=== PATIENT | male | born 1930 | race Caucasian/White ===

== ENCOUNTER 2017-11-18 16:53 | Emergency (ER) | payer MEDICARE ==
[2017-11-18] MEDS ORDERED: ISOVUE-370 76%-LOCM 1 ML ONE (17:35)
[2017-11-18 18:45] LABS: #Basophils 0.1 thou/uL (0.0-0.2); #Eosinphils 0.2 thou/uL (0.0-0.7); #Lymphocytes 2.9 thou/uL (1.20-3.40); #Monocytes 0.7 thou/uL (0.11-0.59); %Basophils 1.7 % (0.0-1.0); %Eosinophils 2.6 % (0.0-10.0); %Lymphocytes 41.5 % (21.0-51.0); %Monocytes 10.1 % (0.0-10.0); %Neutrophils 44.1 % (42.0-75.0); Hemoglobin 12.8 g/dL (14.0-18.0); Mean Corpuscular HGB CONC 33.1 g/dL (32.0-36.0); Mean Corpuscular Hemoglobin 32.7 pg (27.0-31.0); Mean Corpuscular Volume 98.9 fl (80.0-94.0); Platelet Count 219 thou/uL (130-400); RBC Distribution Width 12.1 % (11.5-14.5); Red Blood Cell (RBC) Count 3.93 mill/uL (4.70-6.10); White Blood Cell (WBC) Count 6.9 thou/uL (4.8-10.8)
[2017-11-18 18:52] LABS: Prothrombin Time 13.4 SEC (12.0-14.7)
[2017-11-18 19:02] LABS: ALT (SGPT) 20 U/L (8-55); AST (SGOT) 25 U/L (5-34); Albumin 4.2 g/dL (3.4-4.8); Alkaline Phosphatase 50 U/L (40-150); Anion Gap 16 mmol/L (10-20); BUN (Urea Nitrogen) 21 mg/dL (8.4-25.7); Bilirubin, Total 0.3 mg/dL (0.2-1.2); Calc. Creatinine Clearance 0 mL/min (70-130); Calcium 9.9 mg/dL (7.8-10.44); Carbon Dioxide 21 mmol/L (23-31); Chloride 104 mmol/L (98-107); Estimated GFR-MDRD 49; Globulin 3.1 g/dL (2.4-3.5); Glucose 114 mg/dL (83-110); Potassium 4.3 mmol/L (3.5-5.1); Protein, Total 7.3 g/dL (5.8-8.1); Sodium 137 mmol/L (136-145)
--- NOTE | 2017-11-18 19:06 | CT ---
CT BRAIN WITHOUT CONTRAST 11/18/17 HISTORY: Headache. There are changes of cortical atrophy and chronic small vessel ischemic disease. The ventricular size is appropriate and the basilar cisterns are patent. No evidence of acute infarct, hemorrhage, midlin e shift, or abnormal extra-axial fluid collections are seen. The bony calvarium is intact. The visual ized paranasal sinuses and mastoid air cells are well aerated. IMPRESSION: No CT evidence of acute intracranial process. POS: [facility]
[2017-11-18] MEDS ORDERED: Morphine 4 MG/ML VIAL ONE (19:08)
[2017-11-18] MEDS ORDERED: Ondansetron HCl/PF 4 MG/2 ML Vial ONE (19:08)
--- NOTE | 2017-11-18 20:02 | CT ---
CT CERVICAL SPINE WITH CORONAL AND SAGITTAL REFORMATIONS: 11/18/17 HISTORY: Fall. Neck pain. FINDINGS: There is a fracture involving the base of the odontoid process extending to the body and the lateral masses bilaterally. Mild associated displacement is seen. There are degenerative changes in the spine. IMPRESSION: Type III odontoid fracture. Neurosurgical consultation is recommended. Report was called over the telephone to Tamica Kuhn nurse practitioner in the Emergency Room at 6 :08 p.m. POS: [facility]
--- NOTE | 2017-11-18 23:21 | CT ---
CT ANGIO OF NECK WITH IV CONTRAST AND 3D POSTPROCESSIN11/18/17 HISTORY: Trauma, neck pain. FINDINGS: Vascular calcifications are present. There is moderate (50-69%) stenosis involving the proximal right ICA. The common carotid arteries, left internal carotid and both vertebral arteries demonstrate good flow. No intimal flap is seen to suggest dissection. Type III odontoid fracture noted on earlier CT scan of cervical spine is again seen. IMPRESSION: 1. No CT evidence of vascular injury. 2. Moderate (50-69%) stenosis involving the right proximal ICA. 3. Type III odontoid fracture. POS: [facility]
[2017-11-19 03:06] LABS: Bilirubin Negative (Negative); Blood, Urine Moderate (Negative); Clarity CLEAR (Clear); Glucose, Urine (Dipstick) Negative (Negative); Leukocyte Negative (Negative); Nitrite Negative (Negative); Protein, Urine (Dipstick) Negative (Neg-Trace); Specific Gravity, Urine 1.026 (1.002-1.036); Urobilinogen 0.2 mg/dL (0.2-1.0)
[2017-11-19 03:08] LABS: Bacteria/HPF None Seen HPF (None Seen); Hyaline Casts/LPF 0-3 HYALINE CAST LPF (0-3 Hyaline); RBC/HPF GREATER THAN 50-TNTC HPF (0-3); Squamous Epithelial None Seen HPF (0-3); WBC/HPF None Seen HPF (0-3)
--- NOTE | 2017-12-21 21:25 | EKG ---
Test Reason : SOB Blood Pressure : / mmHG Vent. Rate : 078 BPM Atrial Rate : 078 BPM P-R Int : 172 ms QRS Dur : 094 ms QT Int : 416 ms P-R-T Axes : 047 -49 053 degrees QTc Int : 474 ms Normal sinus rhythm Left axis deviation Abnormal ECG Confirmed by CAROLYN JULIO M.D. ([id number]), web content editor STACEY NICK ([id number]) on 12/21/2017 9:25:31 PM Referred By: Confirmed By:CAROLYN JULIO M.D.
== END 2017-11-19 05:00 ==
LOC: ERS 16:53
DX: S12.120A Other displaced dens fracture, initial encounter for closed fracture (principal); I65.21 Occlusion and stenosis of right carotid artery; S00.83XA Contusion of other part of head, initial encounter; I25.10 Atherosclerotic heart disease of native coronary artery without angina pectoris; E78.5 Hyperlipidemia, unspecified; I10 Essential (primary) hypertension; E03.9 Hypothyroidism, unspecified; G62.9 Polyneuropathy, unspecified; I25.2 Old myocardial infarction; Z85.46 Personal history of malignant neoplasm of prostate; Z79.02 Long term (current) use of antithrombotics/antiplatelets; Z79.82 Long term (current) use of aspirin; Z79.899 Other long term (current) drug therapy; W01.10XA Fall on same level from slipping, tripping and stumbling with subsequent striking against unspecified object, initial encounter; Y92.481 Parking lot as the place of occurrence of the external cause
CPT/HCPCS: 70450; 70498; 72125; 80053; 81003; 81015; 85025; 85610; 93005; 96374; 96375; J2270; J2405

== ENCOUNTER 2017-12-10 08:58 | Emergency (ER) | payer MEDICARE ==
[2017-12-10] MEDS ORDERED: HYDROcodone/Acetaminophen 5/325 mg Tablet ONE (09:33)
== END 2017-12-10 09:46 | disposition home or self-care (01) ==
LOC: ERS 08:58
DX: M54.2 Cervicalgia (principal); I25.10 Atherosclerotic heart disease of native coronary artery without angina pectoris; E78.5 Hyperlipidemia, unspecified; I10 Essential (primary) hypertension; E03.9 Hypothyroidism, unspecified; I25.2 Old myocardial infarction; Z87.81 Personal history of (healed) traumatic fracture; Z79.899 Other long term (current) drug therapy; Z79.82 Long term (current) use of aspirin
CPT/HCPCS: 99283

== ENCOUNTER 2017-12-12 10:45 | Outpatient (CLI) | payer MEDICARE ==
--- NOTE | 2017-12-12 13:09 | RAD ---
FOUR VIEWS LEFT ELBOW: Comparison: None. History: Pain from fall. FINDINGS: Four views of the left elbow shows no evidence of acute fracture or dislocation. No elbow effusion is seen. There is moderate posterior soft tissue swelling. IMPRESSION: Soft tissue swelling without underlying osseous abnormality. POS: [facility]
== END 2017-12-12 10:46 | disposition home or self-care (01) ==
LOC: TBSIIMAG 10:45
PROVIDERS: ATTEND Neurological Surgery
DX: S12.9XXA Fracture of neck, unspecified, initial encounter (principal); M25.521 Pain in right elbow; M79.89 Other specified soft tissue disorders

== ENCOUNTER 2017-12-13 14:40 | Observation (INO) | payer MEDICARE ==
[2017-12-13 15:08] LABS: #Basophils 0.1 thou/uL (0.0-0.2); #Eosinphils 0.1 thou/uL (0.0-0.7); #Lymphocytes 2.1 thou/uL (1.20-3.40); #Monocytes 0.5 thou/uL (0.11-0.59); #Neutrophils 3.9 thou/uL (1.40-6.50); %Basophils 0.8 % (0.0-1.0); %Eosinophils 1.6 % (0.0-10.0); %Lymphocytes 31.9 % (21.0-51.0); %Monocytes 7.1 % (0.0-10.0); %Neutrophils 58.6 % (42.0-75.0); Hemoglobin 14.1 g/dL (14.0-18.0); Mean Corpuscular HGB CONC 32.6 g/dL (32.0-36.0); Mean Corpuscular Hemoglobin 32.1 pg (27.0-31.0); Mean Corpuscular Volume 98.4 fl (80.0-94.0); Mean Platelet Volume 7.3 fL (7.4-10.4); Platelet Count 380 thou/uL (130-400); RBC Distribution Width 12.1 % (11.5-14.5); White Blood Cell (WBC) Count 6.6 thou/uL (4.8-10.8)
[2017-12-13 15:31] LABS: ALT (SGPT) 20 U/L (8-55); AST (SGOT) 27 U/L (5-34); Albumin 4.4 g/dL (3.4-4.8); Alkaline Phosphatase 76 U/L (40-150); Anion Gap 16 mmol/L (10-20); BUN (Urea Nitrogen) 21 mg/dL (8.4-25.7); Bilirubin, Total 0.5 mg/dL (0.2-1.2); Calc. Creatinine Clearance 0 mL/min (70-130); Carbon Dioxide 22 mmol/L (23-31); Chloride 102 mmol/L (98-107); Estimated GFR-MDRD 68; Globulin 3.8 g/dL (2.4-3.5); Glucose 91 mg/dL (83-110); Potassium 4.2 mmol/L (3.5-5.1); Protein, Total 8.2 g/dL (5.8-8.1); Sodium 136 mmol/L (136-145)
--- NOTE | 2017-12-13 15:53 | RAD ---
FOUR VIEWS OF THE CERVICAL SPINE: INDICATION: History of UTI, hallucinations, and weakness. History of C2 fracture. COMPARISON: Prior exam dated 11/18/17. FINDINGS: The odontoid fracture is not appreciably changed in position to the comparison CT. There is severe m ultilevel spondylosis of the cervical spine.. Prevertebral soft tissues appear within normal limits. There are chronic lung changes involving the lung apices. The lateral masses are symmetric. IMPRESSION: C2 odontoid fracture does not appear appreciably changed in position from the comparison CT dated 11/18. POS: [facility]
--- NOTE | 2017-12-13 15:53 | RAD ---
PA AND LATERAL OF THE CHEST: 12/13/17 INDICATION: History of UTI, hallucinations, weakness. FINDINGS: The lungs are hyperinflated with increased interstitial prominence likely related to underlying COPD change. 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 There is vascular calcification involving the aor tic arch. No pleural effusion, or pneumothorax noted. No acute osseous abnormality is evident. IMPRESSION: No definite acute cardiopulmonary abnormalities. POS: [facility]
[2017-12-13 17:38] LABS: CKMB 5.1 ng/mL (0-6.6)
[2017-12-13 18:56] LABS: Bilirubin Negative (Negative); Blood, Urine Small (Negative); Clarity CLEAR (Clear); Glucose, Urine (Dipstick) Negative (Negative); Leukocyte Negative (Negative); Nitrite Negative (Negative); Protein, Urine (Dipstick) Trace mg/dL (Neg-Trace); Specific Gravity, Urine 1.026 (1.002-1.036); Urobilinogen 0.2 mg/dL (0.2-1.0); pH, Urine 6.5 (5.0-9.0)
[2017-12-13 19:04] LABS: Bacteria/HPF None Seen HPF (None Seen); Hyaline Casts/LPF 7-10 HYALINE CAST LPF (0-3 Hyaline)
[2017-12-13 19:17] LABS: Renal Epithelial None Seen HPF (0-3); Transitional Epithelial NONE SEEN HPF (0-3)
--- NOTE | 2017-12-13 20:18 | CT ---
CT OF THE BRAIN WITHOUT CONTRAST 12/13/16 COMPARISON: 11/18/17 HISTORY: Worsening altered mental status over the last week. Confusion. Head trauma three weeks ago. TECHNIQUE: Multiple contiguous axial images are obtained in a CT of the brain without contrast. FINDINGS: There is a very small isodense extra-axial fluid collection along the right frontal convexity which l ikely represents a remote resorbing subdural hematoma. This measures 5 mm in greatest thickness. Ther e is scattered hypodensities in the subcortical and periventricular white matter, likely secondary to small vessel ischemic disease. No interventricular hemorrhage is seen. There is no evidence of hydro cephalus. The calvarium and overlying soft tissues are unremarkable. The visualized paranasal sinuses and masto id air cells are well aerated. IMPRESSION: Remote right frontal convexity subdural hematoma. POS: [facility]
[2017-12-14] MEDS ORDERED: Acetaminophen 500 MG TAB ONE (00:19)
[2017-12-14] MEDS ORDERED: Ondansetron HCl/PF 4 MG/2 ML Vial IVP PRN (02:17)
[2017-12-14] MEDS ORDERED: Acetaminophen 325 MG TAB PO PRN (02:17)
[2017-12-14] MEDS ORDERED: Ondansetron ODT 4 MG TAB SL PRN (02:17)
[2017-12-14 02:25] VITALS: BMI 22.8
[2017-12-14] MEDS ORDERED: Levothyroxine Sodium 75 MCG TAB PO SCH (06:30)
[2017-12-14] MEDS: Calcium/Multivitamins W-Iron 1 TAB TAB PO SCH (08:12)
[2017-12-14] MEDS: Losartan 25 MG TAB PO SCH (08:13)
[2017-12-14] MEDS: busPIRone HCl 10 MG TAB PO SCH ×2 (08:13→20:40)
[2017-12-14] MEDS: Clopidogrel Bisulfate 75 MG TAB PO SCH (08:13)
[2017-12-14] MEDS: Citalopram 20 MG TAB PO SCH (08:13)
[2017-12-14] MEDS: Gabapentin 300 MG CAP PO SCH (08:14)
[2017-12-14] MEDS: Bupropion 150 MG SR TAB PO SCH (08:14)
[2017-12-14] MEDS: Aspirin 81 mg Enteric Coated Tablet PO SCH (08:14)
--- NOTE | 2017-12-14 13:48 | EKG ---
Test Reason : Blood Pressure : / mmHG Vent. Rate : 085 BPM Atrial Rate : 085 BPM P-R Int : 162 ms QRS Dur : 090 ms QT Int : 384 ms P-R-T Axes : 046 -49 055 degrees QTc Int : 456 ms Normal sinus rhythm Left axis deviation Confirmed by LAURA IVEY ([id number]), news copy editor CHU RODRIGUEZ ([id number]) on 12/14/2017 1:48:08 PM Referred By: Confirmed By:LAURA IVEY
[2017-12-14] MEDS: Acetaminophen 325 MG TAB PO PRN (20:40)
[2017-12-14] MEDS: rOPINIRole HCl 2 MG TAB PO SCH (20:40)
[2017-12-14] MEDS: Atorvastatin Calcium 10 MG TAB PO SCH (20:40)
[2017-12-15] MEDS: Acetaminophen 325 MG TAB PO PRN ×2 (04:42→21:34)
[2017-12-15] MEDS: Levothyroxine Sodium 75 MCG TAB PO SCH (04:42)
[2017-12-15] MEDS: Bupropion 150 MG SR TAB PO SCH (08:07)
[2017-12-15] MEDS: Losartan 25 MG TAB PO SCH (08:07)
[2017-12-15] MEDS: Clopidogrel Bisulfate 75 MG TAB PO SCH (08:08)
[2017-12-15] MEDS: busPIRone HCl 10 MG TAB PO SCH ×2 (08:08→20:14)
[2017-12-15] MEDS: Calcium/Multivitamins W-Iron 1 TAB TAB PO SCH (08:08)
[2017-12-15] MEDS: Gabapentin 300 MG CAP PO SCH (08:08)
[2017-12-15] MEDS: Citalopram 20 MG TAB PO SCH (08:08)
[2017-12-15] MEDS: Aspirin 81 mg Enteric Coated Tablet PO SCH (08:08)
--- NOTE | 2017-12-15 11:14 | PDOC.PN ---
- Subjective Encounter Start Date: 12/15/17 Encounter Start Time: 11:14 Subjective: nsg notes rev, alden ovn -: still having abrasive pain along L jaw being in collar - Objective Vital Signs & Weight: Vital Signs (12 hours) Temp Pulse Resp BP Pulse Ox 12/15/17 08:00 98.3 F 75 18 149/80 H 98 Weight Weight 159 lb 2 oz I&O: 12/14/17 12/15/17 12/16/17 06:59 06:59 06:59 Intake Total 200 950 Output Total 0 Balance 200 950 Result Diagrams: 12/13/17 14:57 12/13/17 14:57 Phys Exam - Physical Examination Constitutional: NAD HEENT: PERRLA, moist MMs, sclera anicteric Neck: no nodes Respiratory: no wheezing, no rales, no rhonchi, clear to auscultation bilateral Cardiovascular: RRR, no significant murmur, no rub Gastrointestinal: soft, non-tender, no distention, positive bowel sounds Musculoskeletal: no edema, pulses present Psychiatric: normal affect oriented to self and date only. thought we were [place] Dx/Plan - Plan * .1. This is an 86-year-old male, who presented with a chief complaint of altered mental status. * Altered mental status * poor recall of events, thinks we are in [place] * will need to confirm with family degree whcih is acute vs chronic * 20 lb wt loss * dietary c/s * close monitoring required * likely etiology of failure to thrive Review of Systems - Medications/Allergies Allergies/Adverse Reactions: Allergies Allergy/AdvReac Type Severity Reaction Status Date / Time No Known Allergies Allergy Verified 02/21/15 17:38 Medications: Current Medications Acetaminophen (Tylenol) 650 mg PO Q4H PRN PRN Reason: Headache/Fever or Pain Last Admin: 12/15/17 04:42 Dose: 650 mg Aspirin (Ecotrin) 81 mg PO DAILY [facility] Last Admin: 12/15/17 08:08 Dose: 81 mg Atorvastatin Calcium (Lipitor) 10 mg PO QPM [facility] Last Admin: 12/14/17 20:40 Dose: 10 mg Bupropion HCl (Wellbutrin Sr) 150 mg PO DAILY [facility] Last Admin: 12/15/17 08:07 Dose: 150 mg Buspirone HCl (Buspar) 10 mg PO BID [facility] Last Admin: 12/15/17 08:08 Dose: 10 mg Citalopram Hydrobromide (Celexa) 40 mg PO DAILY [facility] Last Admin: 12/15/17 08:08 Dose: 40 mg Clopidogrel Bisulfate (Plavix) 75 mg PO DAILY [facility] Last Admin: 12/15/17 08:08 Dose: 75 mg Colestipol HCl (Colestid) 1 gm PO HS [facility] Last Admin: 12/14/17 20:40 Dose: 1 gm Gabapentin (Neurontin) 300 mg PO DAILY [facility] Last Admin: 12/15/17 08:08 Dose: 300 mg Iron/Minerals/Multivitamins (Fosfree) 1 tab PO DAILY [facility] Last Admin: 12/15/17 08:08 Dose: 1 tab Levothyroxine Sodium (Synthroid) 75 mcg PO 0600 [facility] Last Admin: 12/15/17 04:42 Dose: 75 mcg Losartan Potassium (Cozaar) 50 mg PO DAILY [facility] Last Admin: 12/15/17 08:07 Dose: 50 mg Ropinirole HCl (Requip) 4 mg PO QPM [facility] Last Admin: 12/14/17 20:40 Dose: 4 mg
--- NOTE | 2017-12-15 12:03 | HP ---
PRIMARY CARE PHYSICIAN: Rc Lima M.D. CHIEF COMPLAINT: Decreased mental status. HISTORY OF PRESENT ILLNESS: This is an 86-year-old male, who recently had a C2 fracture approximatel y 3 weeks ago on 11/18/2017. Since that time frame, he has been in a C-collar and tolerating the col lar overall. However, over the last few days, the patient's nephew, who often visits the patient, fo und the patient sitting on the chair at home without the C-collar on and the patient is unable to rec all why the C-collar was removed. The patient himself has no overt complaints other than some interm ittent neck pain. The patient's nephew at bedside also indicates that the patient has had an approxi mately 20-pound weight loss over the last month and states that the patient initially had a good appe tite, but was unable to eat very much due to the C-collar impending his jaw motion. In the last week ; however, the nephew has noted that the patient has no appetite whatsoever. REVIEW OF SYSTEMS: As per HPI. Constitutional: Weight loss as described above; otherwise no fevers or chills. Head and Neck: The patient denies any new headaches. Has some neck discomfort, but javad cribe he has overt pain. Denies any paresthetic sensations throughout his head, neck, and shoulders. Cardiovascular: Denies any chest pain, chest pressure. No nausea, no vomiting. No diaphoretic ep isode. No left-sided arm numbness or tingling. Respiratory: Denies any shortness of breath, denies any cough or sputum. Denies any upper respiratory type sinus congestion or postnasal drip. Gastroi ntestinal: Denies any nausea, no vomiting. Denies any pain or just inability to chew, other than th at being unable to completely open his jaw due to his collar placement. Denies any diarrhea or const ipation. Last bowel movement was yesterday, the patient self-described as "normal." Genitourinary: Denies any dysuria or change in urinary frequency, quantity, or quality. Musculoskeletal: Generali zed weakness, easy fatigability. Denies any overt arthralgias or myalgias. Remainder of review of s ystems is otherwise negative. PAST MEDICAL HISTORY: As per HPI, includes the followin. Hyperlipidemia. 2. Hypertension. 3. Hypothyroidism. 4. Known history of coronary artery disease. 5. Status post prostate cancer radiation treatment. 6. Status post LAD stent placement. 7. Status post lumbar laminectomy. 8. Status post "urinary control implant" without further detail. HOME MEDICATIONS: Please see the EMR for full details. Of note, the patient denies any changes to t his regimen over the last 2 weeks. FAMILY HISTORY: The patient denies any known family history of osteoporosis or frequent fractures. Of note, there is a known family history of dementia. SOCIAL HISTORY: The patient essentially lives alone at home. He currently has physical therapy, [facility] nursing available to him frequently at home. He has nephew and a niece who have been helpin g him socially and visiting him frequently over the course of the past month. No alcohol, no illicit drug use, no tobacco use. The patient endorses being full code at this point in time. ALLERGIES: No known drug allergies. PHYSICAL EXAMINATION: VITAL SIGNS: Blood pressure 153/83, heart rate 79, respirations 20, satting 94% on room air with a t emperature of 97.9. GENERAL: The patient is awake, alert, conversant; appears to be an average historian at this point i n time. HEENT: Slightly dry mucous membranes. Equal ocular motions are intact. Clear oropharyngeal cavity. C-collar is currently in place. No skin abrasions noted. CARDIOVASCULAR: S1, S2. Pulses are 2+ bilateral upper extremities. No pitting pedal edema. RESPIRATORY: Clear to auscultation. Reasonable air movement. No wheezes, rales, or rhonchi. ABDOMEN: Positive bowel sounds. Soft and nontender to palpation. MUSCULOSKELETAL: Moving all 4 extremities. ASSESSMENT AND PLAN: 1. This is an 86-year-old male, who presented with a chief complaint of altered mental status. Rega rding the altered mental status, this appears to be completely resolved. Thus he does state that the re is an outpatient plan in place to follow up on an outpatient basis with Neurology for a full neuro logical evaluation for the possibility of early onset dementia. 2. 20-pound weight loss. At this point in time this is perhaps a more acute issue, 20-pound weight loss with clinical history of decreased oral intake. We will consult dietary. I discussed with the patient and his nephew at bedside, perhaps trialing a liquid or pureed type diet while he is in the C -collar and subsequently resuming his baseline diet after the C-collar can be removed safely. 3. Generalized weakness. We will consult physical therapy; however, the patient and the nephew feel that he should be able to go home reasonably if he is able to improve his oral intake. Thank you for asking me to care for this patient. The patient will be admitted under observation sta s to medical surgical. He is currently FULL CODE as discussed above with the patient and his nephe w at bedside.
[2017-12-15 12:57] LABS: Bilirubin Negative (Negative); Blood, Urine Negative (Negative); Clarity CLEAR (Clear); Glucose, Urine (Dipstick) Negative (Negative); Leukocyte Negative (Negative); Nitrite Negative (Negative); Protein, Urine (Dipstick) Negative (Neg-Trace); Specific Gravity, Urine 1.024 (1.002-1.036); Urobilinogen 0.2 mg/dL (0.2-1.0); pH, Urine 6.5 (5.0-9.0)
[2017-12-15] MEDS: Atorvastatin Calcium 10 MG TAB PO SCH (20:14)
[2017-12-15] MEDS: rOPINIRole HCl 2 MG TAB PO SCH (20:14)
[2017-12-16] MEDS ORDERED: Morphine 2 MG/ML SYRINGE SLOW IVP PRN (00:02)
[2017-12-16] MEDS: traMADol HCl 50 MG TAB PO PRN ×3 (00:23→18:55)
[2017-12-16] MEDS: Levothyroxine Sodium 75 MCG TAB PO SCH (05:00)
[2017-12-16] MEDS: Gabapentin 300 MG CAP PO SCH (08:20)
[2017-12-16] MEDS: Losartan 25 MG TAB PO SCH (08:20)
[2017-12-16] MEDS: Citalopram 20 MG TAB PO SCH (08:21)
[2017-12-16] MEDS: Clopidogrel Bisulfate 75 MG TAB PO SCH (08:21)
[2017-12-16] MEDS: busPIRone HCl 10 MG TAB PO SCH ×2 (08:21→20:36)
[2017-12-16] MEDS: Aspirin 81 mg Enteric Coated Tablet PO SCH (08:21)
[2017-12-16] MEDS: Calcium/Multivitamins W-Iron 1 TAB TAB PO SCH (08:22)
[2017-12-16] MEDS: Bupropion 150 MG SR TAB PO SCH (08:22)
[2017-12-16] MEDS: Atorvastatin Calcium 10 MG TAB PO SCH (20:36)
[2017-12-16] MEDS: rOPINIRole HCl 2 MG TAB PO SCH (20:36)
[2017-12-17] MEDS: traMADol HCl 50 MG TAB PO PRN ×3 (00:46→16:13)
[2017-12-17] MEDS: Levothyroxine Sodium 75 MCG TAB PO SCH (05:15)
[2017-12-17] MEDS: Acetaminophen 325 MG TAB PO PRN (05:15)
[2017-12-17] MEDS: Aspirin 81 mg Enteric Coated Tablet PO SCH (08:05)
[2017-12-17] MEDS: Losartan 25 MG TAB PO SCH (08:05)
[2017-12-17] MEDS: Citalopram 20 MG TAB PO SCH (08:06)
[2017-12-17] MEDS: Gabapentin 300 MG CAP PO SCH (08:06)
[2017-12-17] MEDS: busPIRone HCl 10 MG TAB PO SCH (08:07)
[2017-12-17] MEDS: Bupropion 150 MG SR TAB PO SCH (08:07)
[2017-12-17] MEDS: Clopidogrel Bisulfate 75 MG TAB PO SCH (08:07)
[2017-12-17] MEDS: Calcium/Multivitamins W-Iron 1 TAB TAB PO SCH (08:07)
[2017-12-17 11:30] VITALS: TEMP 97.8
[2017-12-17 15:29] VITALS: BP 144/81
--- NOTE | 2017-12-17 15:38 | PDOC.PN ---
- Subjective Encounter Start Date: 12/17/17 Encounter Start Time: 15:42 Subjective: Reports no complaints. States he feels well and is ready to go home. -: He was discharged yesterday but family ember refused to take him home -: Reason for this unclear Had an uneventful night. - Objective MAR Reviewed: Yes Vital Signs & Weight: Vital Signs (12 hours) Temp Pulse Pulse Pulse Pulse Resp BP 12/17/17 14:29 85 99 99 144/81 H 12/17/17 11:28 97.8 F 75 16 12/17/17 08:00 97.4 F L 72 16 12/17/17 07:38 97.4 F L 72 16 BP BP BP Pulse Ox Pulse Ox Pulse Ox Pulse Ox 12/17/17 14:29 118/67 129/67 98 97 97 12/17/17 11:28 117/71 91 L 12/17/17 08:00 12/17/17 07:38 143/79 H 95 Weight Admit Weight 159 lb 2 oz Weight 159 lb 2 oz I&O: 12/16/17 12/17/17 12/18/17 06:59 06:59 06:59 Intake Total 1100 980 Balance 1100 980 Result Diagrams: 12/13/17 14:57 12/13/17 14:57 Phys Exam - Physical Examination Constitutional: NAD HEENT: PERRLA, moist MMs, sclera anicteric C collar in place Neck: no JVD Respiratory: no wheezing, no rales, no rhonchi, clear to auscultation bilateral Cardiovascular: RRR, no significant murmur, no rub Gastrointestinal: soft, non-tender, no distention, positive bowel sounds Musculoskeletal: no edema, pulses present Neurological: non-focal, moves all 4 limbs Psychiatric: normal affect, A&O x 3 Skin: no rash, normal turgor Dx/Plan (1) Acute encephalopathy Code(s): G93.40 - ENCEPHALOPATHY, UNSPECIFIED Status: Resolved Comment: Likely 2/2 new onset dementia. w/u has been negative here. Resolved and pt is well oriented now. f/u B12, folate and TSH (2) Hypothyroidism Code(s): E03.9 - HYPOTHYROIDISM, UNSPECIFIED Status: Acute Qualifiers: Hypothyroidism type: unspecified Qualified Code(s): E03.9 - Hypothyroidism , unspecified Comment: f/u TSH COntinue levothyroxine (3) C2 cervical fracture Code(s): S12.100A - UNSP DISP FX OF SECOND CERVICAL VERTEBRA, INIT FOR CLOS FX Status: Acute Qualifiers: Encounter type: subsequent encounter Fracture type: closed Fracture alignment: nondisplaced Fracture healing: with routine healing Plan: Continue C collar. Soft collar when he showers. Comment: On C-Collar. Repeat X-ray shows no major changes from 11/18 imaging (4) Weight loss, unintentional Code(s): R63.4 - ABNORMAL WEIGHT LOSS Status: Acute Comment: Nutrition on board. COntinue to supplement diet. :Likely 2/2 dementia. (5) Hypertension Code(s): I10 - ESSENTIAL (PRIMARY) HYPERTENSION Status: Chronic Qualifiers: Hypertension type: essential hypertension Qualified Code(s): I10 - Essential (primary) hypertension Comment: Fairly well controlled. Coontinue management. - Plan cont current plan of care, PT/OT Rehab screening. * .
--- NOTE | 2017-12-18 14:44 | DIS ---
DATE OF ADMISSION: 12/14/2017 DATE OF DISCHARGE: 12/17/2017 DISCHARGE DIAGNOSES: Acute encephalopathy; hypothyroidism; C2 cervical fracture; weight loss, unintentional; hypertension. HISTORY OF PRESENT ILLNESS/HOSPITAL COURSE: An 86-year-old male with recent C2 fracture on 8, who was brought to the hospital. Since time of fracture he has been wearing a C-collar and tolera ting the collar overall. Over the last few days, the patient's nephew, who often visits the patient, found him sitting on a chair at home without the C-collar on and the patient was unable to recall wh y it was removed. He himself has no other complaints other than intermittent neck pain. The patient 's nephew at bedside also indicates the patient has had an approximately 20-pound weight loss over last month and stated that the patient initially had a good appetite, but has been unable to eat ve ry much due to C-collar impending his jaw motion. In the last week; however, his nephew noted he has not had any appetite. Labs were noncontributory. Assessment of altered mental status/acute encepha lopathy was made and at time of assessment at the emergency room seemed to have resolved. Neurology was called for further evaluation for the possibility of early onset dementia. Regarding his weight loss, nutrition/dietary was consulted and made recommendations. Physical and occupational therapy we re also consulted. Imaging done included a brain CT, which showed a remote right frontal convexity s ubdural hematoma. A chest x-ray was also obtained and this showed no acute cardiopulmonary abnormali ties. In addition, he had a cervical spine x-ray on admission, which showed a C2 odontoid fracture, which did not appear appreciably change in position from the comparison dated 11/18/2017. The patien t improved considerably and was discharged without incident. PHYSICAL EXAMINATION: VITAL SIGNS: At discharge, temperature 97.8, pulse 75, oxygen saturation 95% on room air, blood pres sure 118/67. GENERAL: Not in acute distress, sitting comfortably in bed. HEENT: PERRLA. Moist mucous membranes. Sclerae are anicteric. NECK: C-collar in place. No JVD. RESPIRATORY: No wheezing, rales or rhonchi. LUNGS: Clear to auscultation bilaterally. CARDIOVASCULAR: Regular rate and rhythm. No murmurs, rubs or gallops. GASTROINTESTINAL: Soft, nontender, nondistended, positive bowel signs. MUSCULOSKELETAL: No edema. Pulses present. NEUROLOGIC: Nonfocal, moves all limbs spontaneously. PSYCHIATRIC: Normal affect and mood. Alert and well oriented to person, place, but not time. SKIN: No rash. Normal turgor. . LABORATORY DATA: WBC 6.6, hemoglobin 14.1, platelets 380. Sodium 136, potassium 4.2, chloride 102, carbon dioxide 22, anion gap 16, BUN 21, creatinine 1.03, troponin 0.010, glucose 91, calcium 10. IMAGING: As above. CONSULTATIONS: None. PROCEDURES: None. DIET: Heart healthy. CONDITION AT DISCHARGE: Stable and improved. ACTIVITY: To resume as tolerated. HEALTHCARE GOALS: He is to follow up with his primary care physician within 1 week of discharge for repeat labs. Discharge time 65 minutes including chart review and documentation. Note, I saw this patient on the day of discharge after he had been discharged the day earlier, but the son refused to take him home b ecause he felt he was not ready.
== END 2017-12-17 19:30 | disposition home or self-care (01) ==
LOC: ERS 14:40 → T4-A 12-14 01:17
PROVIDERS: ADMIT Hospitalist; ATTEND Hospitalist
DX: G93.40 Encephalopathy, unspecified (principal); E03.9 Hypothyroidism, unspecified; S12.100A Unspecified displaced fracture of second cervical vertebra, initial encounter for closed fracture; E78.5 Hyperlipidemia, unspecified; R63.4 Abnormal weight loss; R53.1 Weakness; I10 Essential (primary) hypertension; I25.10 Atherosclerotic heart disease of native coronary artery without angina pectoris; Z98.890 Other specified postprocedural states; Z85.46 Personal history of malignant neoplasm of prostate; Z92.3 Personal history of irradiation
CPT/HCPCS: 51701; 70450; 71046; 72040; 80053; 81003; 82553; 84484; 85025; 87086; 93005; 97116; 97139; 99285; G0378 ×2; G8978; G8979; G8980; 36415; 81015

== ENCOUNTER 2017-12-31 13:16 | Outpatient (CLI) | payer MEDICARE ==
--- NOTE | 2017-12-31 15:02 | CT ---
CT OF THE CERVICAL SPINE WITHOUT CONTRAST: Date: 12/31/17 INDICATION: Follow-up neck fracture. COMPARISON: Prior exam dated 11/18/17. FINDINGS: The Type III odontoid fracture with extension into the superior articular pillars of C2 is stable I p osition. The extent of the fracture lucency appears slightly less prominent than on the comparison ex am, likely indicative of some interval healing. There is linear subchondral sclerosis involving the r ight anterolateral aspect of the T2 vertebra likely indicative of a healing subchondral bone plate fr acture of T2. There is diffuse osteopenia. There is multilevel spondylosis of the cervical spine whic h is similar. Lung apices are clear. IMPRESSION: 1. The Type III odontoid fracture is unchanged in position. The extent of portions of the fracture l ucency seen primarily within the body appears less distinct than on the comparison examination, likel y indicative of some interval healing. The extent of articular surface gap involving the superior art icular surface of C2 appears similar. 2. There is sub end plate sclerosis involving the right anterolateral aspect of T2 likely reflecting a healing nondisplaced sub end plate fracture. 3. Stable moderate to severe multilevel spondylosis of the cervical spine. POS: [facility]
== END 2017-12-31 13:17 | disposition home or self-care (01) ==
LOC: TBSIIMAG 13:16
PROVIDERS: ATTEND Neurological Surgery
DX: S12.9XXD Fracture of neck, unspecified, subsequent encounter (principal); S12.110D Anterior displaced Type II dens fracture, subsequent encounter for fracture with routine healing; M47.892 Other spondylosis, cervical region
CPT/HCPCS: 72125

== ENCOUNTER 2018-04-24 13:02 | Emergency (ER) | payer MEDICARE ==
[~2018-04-24 13:02] MED LIST: ISOVUE-370 76%-LOCM 1 ML ONE
[2018-04-24 13:23] LABS: #Basophils 0.1 thou/uL (0.0-0.2); #Eosinphils 0.1 thou/uL (0.0-0.7); #Lymphocytes 2.2 thou/uL (1.20-3.40); #Monocytes 0.5 thou/uL (0.11-0.59); #Neutrophils 4.6 thou/uL (1.40-6.50); %Basophils 1.1 % (0.0-1.0); %Eosinophils 1.2 % (0.0-10.0); %Lymphocytes 29.1 % (21.0-51.0); %Monocytes 7.1 % (0.0-10.0); %Neutrophils 61.5 % (42.0-75.0); Mean Corpuscular HGB CONC 34.2 g/dL (32.0-36.0); Mean Corpuscular Volume 96.6 fl (80.0-94.0); Platelet Count 197 thou/uL (130-400); RBC Distribution Width 11.5 % (11.5-14.5); Red Blood Cell (RBC) Count 3.95 mill/uL (4.70-6.10); White Blood Cell (WBC) Count 7.5 thou/uL (4.8-10.8)
[2018-04-24 13:46] LABS: CRP (Inflammatory) Less than 0.50 mg/dL (= or < 0.5); Lipase 21 U/L (8-78)
[2018-04-24 13:48] LABS: ALT (SGPT) 19 U/L (8-55); AST (SGOT) 22 U/L (5-34); Albumin 4.3 g/dL (3.4-4.8); Alkaline Phosphatase 44 U/L (40-150); Anion Gap 12 mmol/L (10-20); BUN (Urea Nitrogen) 23 mg/dL (8.4-25.7); Bilirubin, Total 0.4 mg/dL (0.2-1.2); Calc. Creatinine Clearance 0 mL/min (70-130); Calcium 9.4 mg/dL (7.8-10.44); Carbon Dioxide 28 mmol/L (23-31); Chloride 101 mmol/L (98-107); Estimated GFR-MDRD 50; Globulin 2.7 g/dL (2.4-3.5); Glucose 111 mg/dL (83-110); Sodium 136 mmol/L (136-145)
[2018-04-24 13:50] LABS: CKMB 4.3 ng/mL (0-6.6); Troponin I Less than 0.010 ng/mL (< 0.028)
[2018-04-24 14:38] LABS: Bilirubin Negative (Negative); Blood, Urine Negative (Negative); Clarity CLEAR (Clear); Glucose, Urine (Dipstick) Negative (Negative); Leukocyte Small (Negative); Nitrite Negative (Negative); Protein, Urine (Dipstick) Negative (Neg-Trace); Specific Gravity, Urine 1.016 (1.002-1.036); Urobilinogen 0.2 mg/dL (0.2-1.0)
--- NOTE | 2018-04-24 14:47 | CT ---
CT BRAIN WITHOUT CONTRAST: Date: 04/24/18 HISTORY: Trauma, wheezing, fall, hit back of head, headache. FINDINGS: Comparison made with exam of 12/13/17. a The right frontal convexity subdural hematoma noted on the previous exam is smaller on the current st udy, measuring about 2.5 cm in thickness. Changes of cortical atrophy and chronic small vessel ischem ic disease are again seen. No evidence of acute infarct, hemorrhage, or midline shift is identified. The ventricular size is stable and the basilar cisterns are patent. The bony calvarium is intact. The visualized paranasal sinuses and mastoid air cells are well aerated. IMPRESSION: 1. No CT evidence of acute intracranial process. 2. Old tiny right frontal convexity subdural hematoma is smaller compared to 12/13/17. POS: [facility]
[2018-04-24 14:48] LABS: Bacteria/HPF None Seen HPF (None Seen); Hyaline Casts/LPF 0-3 HYALINE CAST LPF (0-3 Hyaline); Pathc Cast-AUWi Flag 0.14 (0-2.49); RBC/HPF 0-3 HPF (0-3); Squamous Epithelial None Seen HPF (0-3); WBC/HPF 0-3 HPF (0-3)
--- NOTE | 2018-04-24 15:07 | CT ---
CT OF THE CHEST WITH CONTRAST CT OF THE ABDOMEN AND PELVIS WITH CONTRAST LIMITED CT OF THORACIC AND LUMBOSACRAL SPINES WITH CONTRAST: Date: 04/24/18 HISTORY: Fall with left lower quadrant abdominal pain, chest pain, and back pain. TECHNIQUE: 1. Multiple contiguous axial images were obtained in a CT of the chest with contrast. Coronal reform ats were performed. 2. Multiple contiguous axial images were obtained in a CT of the abdomen and pelvis with contrast. C oronal reformats were performed. 3. Limited CTs of the thoracic and lumbosacral spins were performed. Sagittal and coronal reformats were created based off images obtained in the chest, abdomen, and pelvic CTs. FINDINGS: CT CHEST: No pneumothorax or pleural effusion seen. There is a calcified granuloma in the right lower lobe. No other pulmonary nodules are seen. No focal infiltrates are present. The heart is normal in size without focal cardiac abnormality. Calcifications are seen in the coronar y arteries and aorta. No hilar or mediastinal lymphadenopathy seen. There is a nondisplaced fracture of the left lateral 10th rib. No other rib fractures are seen. Degen erative changes are seen in the spine. The chest wall soft tissues are unremarkable. CT ABDOMEN/PELVIS: The patient is status post cholecystectomy. There are hypodensities in bilateral kidneys measuring up to 3.5 cm in size which represent cysts. The liver, adrenal glands, spleen, and pancreas are unremar kable. No free air, free fluid, or stranding changes are seen in the abdomen or pelvis. There are scattered diverticula in the colon. The small bowel is unremarkable. No abdominal or pelvic lymphadenopathy seen. There is a cystic structure measuring 3.3 cm in size adjacent to the urinary bladder. This likely rep resents a reservoir for a penile prosthesis. No acute osseous abnormality is seen. Degenerative alvarado es are seen in the spine. The abdominal wall soft tissues are unremarkable. LIMITED CT OF THORACIC AND LUMBOSACRAL SPINE: Moderate degenerative changes are seen throughout the spine. These are more prominent in the lumbar s pine. The vertebral bodies demonstrate normal height and alignment without acute fracture or subluxat ion. IMPRESSION: 1. Left 10th rib fracture without intrathoracic abnormality. 2. No evidence of acute intra-abdominal/pelvic abnormality. 3. Bilateral renal cysts. 4. Diverticulosis. 5. No evidence of acute osseous abnormality of the thoracic or lumbosacral spine. POS: [facility]
--- NOTE | 2018-04-24 15:13 | CT ---
CT CERVICAL SPINE WITH CORONAL AND SAGITTAL REFORMATIONS: Date: 04/24/18 HISTORY: Fall. Trauma to back of head. Patient denies neck pain. FINDINGS/IMPRESSION: Comparison made with exam of 12/31/17. The Type III odontoid fracture with extension into the superior articular pillars of C2 remains in st able position. There is increased irregularity of the fracture lines. No change in alignment is noted . Multilevel degenerative changes are again seen. No new fracture or change in alignment is identified. The linear subchondral sclerosis in the right anterolateral aspect of T2 vertebra likely indicative o f end plate fracture is less well seen on the current study. POS: [facility]
[2018-04-24] MEDS ORDERED: Bupivacaine 0.25% 10 ML VIAL ONE (15:36)
== END 2018-04-24 16:38 | disposition home or self-care (01) ==
LOC: ERS 13:02
DX: S22.32XA Fracture of one rib, left side, initial encounter for closed fracture (principal); E78.5 Hyperlipidemia, unspecified; I10 Essential (primary) hypertension; E03.9 Hypothyroidism, unspecified; I25.2 Old myocardial infarction; W18.30XA Fall on same level, unspecified, initial encounter
CPT/HCPCS: 36415; 70450; 71260; 72125; 74177; 80053; 81003; 81015; 82553; 83690; 84484; 85025; 86140; 93005; S0020

== ENCOUNTER 2018-06-06 11:51 | Emergency (ER) | payer MEDICARE ==
[2018-06-06] MEDS ORDERED: Bacitracin Zinc 1 Packet ONE (12:33)
--- NOTE | 2018-06-06 13:06 | RAD ---
2 VIEWS LEFT FOREARM: Date: 06/06/18 HISTORY: Fall. Pain. COMPARISON: None. FINDINGS: No fracture. No cortical irregularity or periosteal reaction. There appears to be soft tissue swellin g involving the mid forearm at the level of the mid ulnar diaphysis. IMPRESSION: 1. No fracture. 2. There appears to be soft tissue swelling, likely post-traumatic. POS: [facility]
--- NOTE | 2018-06-06 13:06 | RAD ---
3 VIEWS LEFT HAND: Date: 06/06/18 HISTORY: Pain. Patient fell from a seated position. Trauma. FINDINGS: There is chronic degenerative change involving the first carpometacarpal joint space. There is diffus e bone demineralization. The osseous structures of the head appear to be unremarkable for post-trauma tic change. IMPRESSION: No fracture. POS: [facility]
== END 2018-06-06 13:16 | disposition home or self-care (01) ==
LOC: ERS 11:51
DX: S66.912A Strain of unspecified muscle, fascia and tendon at wrist and hand level, left hand, initial encounter (principal); S56.912A Strain of unspecified muscles, fascia and tendons at forearm level, left arm, initial encounter; E03.9 Hypothyroidism, unspecified; E78.5 Hyperlipidemia, unspecified; I25.2 Old myocardial infarction; I25.10 Atherosclerotic heart disease of native coronary artery without angina pectoris; G62.9 Polyneuropathy, unspecified; Z87.891 Personal history of nicotine dependence; Z85.46 Personal history of malignant neoplasm of prostate; Z79.82 Long term (current) use of aspirin; Z79.899 Other long term (current) drug therapy; W18.30XA Fall on same level, unspecified, initial encounter; Y92.129 Unspecified place in nursing home as the place of occurrence of the external cause

== ENCOUNTER 2018-11-12 13:48 | Emergency (ER) | payer MEDICARE ==
[2018-11-12 15:42] LABS: #Basophils 0.1 thou/uL (0.0-0.2); #Eosinphils 0.1 thou/uL (0.0-0.7); #Lymphocytes 3.3 thou/uL (1.20-3.40); #Monocytes 0.6 thou/uL (0.11-0.59); #Neutrophils 3.3 thou/uL (1.40-6.50); %Lymphocytes 44.2 % (21.0-51.0); %Monocytes 8.1 % (0.0-10.0); %Neutrophils 44.8 % (42.0-75.0); Hemoglobin 13.8 g/dL (14.0-18.0); Mean Corpuscular HGB CONC 34.2 g/dL (32.0-36.0); Mean Corpuscular Hemoglobin 32.4 pg (27.0-31.0); Mean Corpuscular Volume 94.9 fL (78.0-98.0); Mean Platelet Volume 7.6 fL (7.4-10.4); Platelet Count 239 thou/uL (130-400); RBC Distribution Width 11.7 % (11.5-14.5); Red Blood Cell (RBC) Count 4.24 mill/uL (4.70-6.10); White Blood Cell (WBC) Count 7.4 thou/uL (4.8-10.8)
[2018-11-12 16:06] LABS: ALT (SGPT) 14 U/L (8-55); AST (SGOT) 18 U/L (5-34); Albumin 4.3 g/dL (3.4-4.8); Alkaline Phosphatase 57 U/L (40-150); Anion Gap 13 mmol/L (10-20); BUN (Urea Nitrogen) 15 mg/dL (8.4-25.7); Bilirubin, Total 0.2 mg/dL (0.2-1.2); Calc. Creatinine Clearance 0 mL/min (70-130); Calcium 9.8 mg/dL (7.8-10.44); Carbon Dioxide 27 mmol/L (23-31); Chloride 104 mmol/L (98-107); Estimated GFR-MDRD 57; Globulin 3.6 g/dL (2.4-3.5); Glucose 97 mg/dL (83-110); Potassium 4.4 mmol/L (3.5-5.1); Protein, Total 7.9 g/dL (5.8-8.1); Sodium 140 mmol/L (136-145)
--- NOTE | 2018-11-12 17:13 | CT ---
HEAD CT NONCONTRAST: 11/12/18 INDICATION: Skin irrigation to the posterior scalp, pain. FINDINGS: Mild chronic ischemic disease is present, along with mild age related parenchymal volume loss and com pensatory dilatation of ventricular system. There is no intracranial hemorrhage, mass effect or midli ne shift. No fluid level of the paranasal sinuses evident. Added density of the high left parietal sc alp at the vertex is present. IMPRESSION: No acute intracranial abnormalities. Chronic ischemic disease and mild age related parenchymal volume loss. Added density of the high left parietal scalp at the vertex is present. Correlate with physical exam, as findings are nonspecific. POS: [facility]
== END 2018-11-12 17:15 | disposition home or self-care (01) ==
LOC: ERS 13:48
DX: L98.9 Disorder of the skin and subcutaneous tissue, unspecified (principal); E78.5 Hyperlipidemia, unspecified; I25.10 Atherosclerotic heart disease of native coronary artery without angina pectoris; E03.9 Hypothyroidism, unspecified; I10 Essential (primary) hypertension; I25.2 Old myocardial infarction; Z87.891 Personal history of nicotine dependence
CPT/HCPCS: 36415; 70450; 80053; 85025

== ENCOUNTER 2019-02-24 09:42 | Outpatient (CLI) | payer MEDICARE ==
--- NOTE | 2019-02-24 11:00 | CT ---
EXAM: CT Cervical Spine WO Con PROVIDED CLINICAL HISTORY: Neck pain and limited range of motion. COMPARISON: 04/24/2018 FINDINGS: There is been interval healing of the type III odontoid fracture. There is irregularity at the base o f the odontoid posteriorly secondary to the remote fracture. This irregularity does result in encroachment on the cervical medullary junction and probably results in slight flattening of the ante rior aspect cervical medullary junction. There are degenerative changes involving the articulation of left lateral masses of C1 and C2 with narrowing of the joint space. There is fusion of the posterior elements on the left at the C7-T1 level which is a stable finding. T his also questionable partial fusion of the C7 and T1 vertebral bodies. Multilevel degenerative changes are seen throughout the cervical spine with narrowing of the interver tebral disc spaces at all levels with evidence of posterior osteophyte formation. C2-3 level: There are facet degenerative changes at the C2-3 level. There is moderate narrowing of th e right neural foramen. Left neural foramen is patent. Small central disc protrusion which encroaches on the anterior aspect of the spinal cord. C3-4 level: There is broad-based disc osteophyte complex which narrows the ventral subarachnoid space . Mild facet degenerative changes are present. Findings result in moderate to severe bilateral neural foraminal narrowing. C4-5 level: There is broad-based disc osteophyte complex which narrows the ventral subarachnoid space and encroaches on the anterior aspect of the spinal cord. The right neural foramen is patent, but there is moderate left-sided neural foraminal narrowing due to bony encroachment. C5-6 level: There is a broad-based disc osteophyte complex which narrows the ventral subarachnoid spa ce and encroaches on the anterior aspect of the spinal cord. There is mild right and mild to moderate left-sided neural foraminal narrowing. C6-7 level: Mild broad-based disc osteophyte complex which narrows the ventral subarachnoid space. Th ere is minimal left-sided neural foraminal narrowing related to bony encroachment. The right neural foramen appears patent. C7-T1 level: No significant narrowing of the central spinal canal or neural foramina. The prevertebral soft tissues are within normal limits. Vascular calcifications are seen limited visualized aortic arch as well as involving the carotid dinorah carlos bilaterally. IMPRESSION: 1. Healed type III odontoid fracture. There is irregularity along the posterior aspect base of the C2 vertebral body related to the fracture with posterior aspect of the C2 vertebral body in this region narrowing the central canal and does appear to result in mild mass effect on the anterior aspe ct of the cervical medullary junction. 2. Multilevel degenerative changes in the cervical spine not significantly progressed from prior exam .
== END 2019-02-24 09:43 | disposition home or self-care (01) ==
LOC: TBSIIMAG 09:42
PROVIDERS: ATTEND Neurological Surgery
DX: M54.2 Cervicalgia (principal); M47.812 Spondylosis without myelopathy or radiculopathy, cervical region; Z87.81 Personal history of (healed) traumatic fracture
CPT/HCPCS: 72125

== ENCOUNTER 2019-12-19 19:33 | Emergency (ER) | payer MEDICARE ==
[2019-12-19 20:51] LABS: #Basophils 0.1 thou/uL (0.0-0.2); #Eosinphils 0.1 thou/uL (0.0-0.7); #Lymphocytes 2.2 thou/uL (1.20-3.40); #Monocytes 0.5 thou/uL (0.11-0.59); #Neutrophils 2.8 thou/uL (1.40-6.50); %Eosinophils 2.4 % (0.0-10.0); %Lymphocytes 38.5 % (21.0-51.0); %Monocytes 9.3 % (0.0-10.0); %Neutrophils 48.8 % (42.0-75.0); Hemoglobin 13.6 g/dL (14.0-18.0); Mean Corpuscular HGB CONC 34.3 g/dL (32.0-36.0); Mean Corpuscular Hemoglobin 32.2 pg (27.0-31.0); Mean Corpuscular Volume 93.9 fL (78.0-98.0); Mean Platelet Volume 7.5 fL (7.4-10.4); Platelet Count 251 thou/uL (130-400); RBC Distribution Width 12.2 % (11.5-14.5); Red Blood Cell (RBC) Count 4.21 mill/uL (4.70-6.10); White Blood Cell (WBC) Count 5.7 thou/uL (4.8-10.8)
--- NOTE | 2019-12-19 20:52 | CT ---
CT BRAIN WITHOUT CONTRAST: HISTORY:Fall, altered mental status, weakness COMPARISON:11/12/2018 FINDINGS: There are foci of decreased attenuation in the periventricular white matter, consistent with chronic small vessel ischemic disease. Cortical atrophy is stable. No evidence of acute infarct, hemorrhage, midline shift or abnormal extra-axial fluid collections is seen. The ventricular size is appropriate and the basilar cisterns are patent. The bony calvarium is intact. The visualized paranasal sinuses and mastoid air cells are well aerated. IMPRESSION: No CT evidence of acute intracranial process.
--- NOTE | 2019-12-19 20:55 | CT ---
CT CERVICAL SPINE WITH CORONAL AND SAGITTAL REFORMATIONS AND NO IV CONTRAST: HISTORY: Fall, neck pain COMPARISON: 02/24/2019 FINDINGS: Multilevel degenerative changes are present. Healed type III odontoid fracture is again seen.There is fusion of the posterior elements on the left at the C7-T1 level which is a stable finding. This also questionable partial fusion of the C7 and T1 vertebral bodies. There is loss of cervical lordosis with straightening of the cervical spine. No acute fracture, sublu xation or facet malalignment is identified. No prevertebral soft tissue swelling is apparent. The visualized lung apices are unremarkable. IMPRESSION: No CT evidence for fracture or traumatic subluxation.
--- NOTE | 2019-12-19 20:57 | RAD ---
XR Chest 1 View Portable HISTORY: Respiratory status, weakness, fall COMPARISON: 05/09/2017 FINDINGS: The heart size is normal. Changes of median sternotomy again seen. The lungs are well expan ded without focal areas of consolidation, pneumothorax or pleural effusions. IMPRESSION: No radiographic evidence of acute cardiopulmonary process.
[2019-12-19 21:11] LABS: ALT (SGPT) 13 U/L (8-55); AST (SGOT) 20 U/L (5-34); Albumin 4.6 g/dL (3.4-4.8); Alkaline Phosphatase 64 U/L (40-110); Anion Gap 13 mmol/L (10-20); BUN (Urea Nitrogen) 19 mg/dL (8.4-25.7); Bilirubin, Total 0.4 mg/dL (0.2-1.2); CK (CPK) 178 U/L (30-200); Calc. Creatinine Clearance 0 mL/min (70-130); Calcium 9.8 mg/dL (7.8-10.44); Carbon Dioxide 24 mmol/L (23-31); Chloride 106 mmol/L (98-107); Estimated GFR-MDRD 52; Globulin 3.6 g/dL (2.4-3.5); Glucose 102 mg/dL (83-110); Potassium 3.3 mmol/L (3.5-5.1); Protein, Total 8.2 g/dL (5.8-8.1)
[2019-12-19 21:17] LABS: Sodium 140 mmol/L (136-145)
[2019-12-19] MEDS ORDERED: Potassium Chloride 20 MEQ TAB ONE (21:36)
== END 2019-12-19 23:39 | disposition home or self-care (01) ==
LOC: ERS 19:33
DX: R53.1 Weakness (principal); I25.10 Atherosclerotic heart disease of native coronary artery without angina pectoris; E78.5 Hyperlipidemia, unspecified; E78.00 Pure hypercholesterolemia, unspecified; I10 Essential (primary) hypertension; E03.9 Hypothyroidism, unspecified; I25.2 Old myocardial infarction; G62.9 Polyneuropathy, unspecified; Z87.891 Personal history of nicotine dependence
CPT/HCPCS: 70450; 71045; 72125; 80053; 82550; 84484; 85025; 93005

== ENCOUNTER 2020-04-18 11:55 | Emergency (ER) | payer MEDICARE ==
[2020-04-18 12:28] LABS: #Eosinphils 0.1 thou/uL (0.0-0.7); #Lymphocytes 1.8 thou/uL (1.20-3.40); #Neutrophils 10.3 thou/uL (1.40-6.50); %Basophils 0.3 % (0.0-1.0); %Eosinophils 0.4 % (0.0-10.0); %Monocytes 7.7 % (0.0-10.0); %Neutrophils 77.7 % (42.0-75.0); Mean Corpuscular HGB CONC 34.3 g/dL (32.0-36.0); Mean Corpuscular Hemoglobin 32.5 pg (27.0-31.0); Mean Corpuscular Volume 94.7 fL (78.0-98.0); Mean Platelet Volume 8.3 fL (7.4-10.4); Platelet Count 247 thou/uL (130-400); RBC Distribution Width 12.4 % (11.5-14.5); White Blood Cell (WBC) Count 13.2 thou/uL (4.8-10.8)
[2020-04-18 13:02] LABS: ALT (SGPT) 10 U/L (8-55); AST (SGOT) 18 U/L (5-34); Albumin 4.5 g/dL (3.4-4.8); Alkaline Phosphatase 52 U/L (40-110); Anion Gap 16 mmol/L (10-20); BUN (Urea Nitrogen) 20 mg/dL (8.4-25.7); Bilirubin, Total 0.3 mg/dL (0.2-1.2); Calc. Creatinine Clearance 0 mL/min (70-130); Calcium 9.6 mg/dL (7.8-10.44); Carbon Dioxide 19 mmol/L (23-31); Chloride 110 mmol/L (98-107); Estimated GFR-MDRD 49; Globulin 3.7 g/dL (2.4-3.5); Glucose 111 mg/dL (83-110); Potassium 3.8 mmol/L (3.5-5.1); Protein, Total 8.2 g/dL (5.8-8.1); Sodium 141 mmol/L (136-145)
--- NOTE | 2020-04-18 13:17 | RAD ---
SINGLE VIEW OF THE CHEST: Comparison: 12-19-2019 History: Sudden onset of shortness of breath. FINDINGS: Single view of the chest shows a normal sized cardiomediastinal silhouette with atherosclerotic calci fications in the aorta. The patient is status post sternotomy. Lucency is seen in both lung apices wh ich may represent COPD. There is no evidence of consolidation, mass or pleural effusion. IMPRESSION: No evidence of acute cardiopulmonary disease. POS: [facility]
--- NOTE | 2020-04-18 14:09 | CT ---
CT ANGIOGRAM THORAX WITH CONTRAST: (CTA pulmonary angiogram) DATE: 04/18/2020 HISTORY: 81-year-old male with dyspnea and tachycardia TECHNIQUE: IV injection of iodinated contrast. Scan acquisition timing attempted to coincide with iodinated contrast bolus reaching maximal density in pulmonary arteries. 3-D MIP reconstructions. FINDINGS: In the apicoposterior segment of the left upper lobe, there is an approximately 0.7 x 0.5 x 0.3 cm no ncalcified irregularly-shaped pulmonary nodule (axial image 24 of 134, series 4; coronal image 64 of 107, series 502), which was not present on previous CT of 04/24/2018. A 0.6 x 0.4 x 0.3 cm noncalcified pulmonary nodule at anterior base of left lower lobe (axial image 8 4 of 134, series 4; coronal image 46 of 107, series 502), and questionably a second pulmonary nodule directly superior to it measuring approximate 0.5 x 0.2 cm, only visualized on coronal image, both also new since the prior CT. No consolidation. No pleural effusion. Posterior lung bases images degraded by patient breathing gregory on artifact. Stomach distended by a large amount of gas, moderate amount of ingested material, and large amount of fluid. No pulmonary thromboembolism. Atherosclerotic calcification of thoracic aorta with ectasia and tortuosity, but no aneurysm or disse ction. Sternotomy wires. Stents or calcified plaque in coronary arteries. IMPRESSION: 1) no pulmonary thromboembolism. 2) somewhat severe gastric distention 3) small noncalcified pulmonary nodules, at apicoposterior segment of left upper lobe, and base of le ft lower lobe. 4) recommend serial follow-up chest CTs, beginning in 6 months.
[2020-04-18] MEDS ORDERED: Iopamidol-370 76% 500 ML 1 ML ONE (15:41)
== END 2020-04-18 15:08 | disposition home or self-care (01) ==
LOC: ERS 11:55
DX: R06.00 Dyspnea, unspecified (principal); I25.10 Atherosclerotic heart disease of native coronary artery without angina pectoris; E78.5 Hyperlipidemia, unspecified; E78.00 Pure hypercholesterolemia, unspecified; I10 Essential (primary) hypertension; E03.9 Hypothyroidism, unspecified; I25.2 Old myocardial infarction; Z87.891 Personal history of nicotine dependence
CPT/HCPCS: 71045; 71275; 80053; 84484; 85025; 93005; 94760; Q9967